=== PATIENT | female | born 2000 | race Caucasian/White ===

== ENCOUNTER 2020-11-29 17:06 | Emergency (ER) | payer OTHER ==
[~2020-11-29 17:06] MED LIST: BACTROBAN OINT22 GM EXT; IBU400 MG PO; IBUPROFEN600 MG PO; KEFLEX CAP 500500 MG PO; MACROBID 100 M100 MG PO
== END 2020-11-29 17:33 | disposition left against medical advice (07) ==
LOC: ER1 17:06
DX: Z53.21 Procedure and treatment not carried out due to patient leaving prior to being seen by health care provider (principal)

== ENCOUNTER 2020-12-01 20:03 | Emergency (ER) | payer OTHER | END 2020-12-01 23:00 | disposition left against medical advice (07) | LOC: ER1 20:03 | DX: N23 Unspecified renal colic (principal); Z53.21 Procedure and treatment not carried out due to patient leaving prior to being seen by health care provider ==

== ENCOUNTER 2020-12-23 14:47 | Emergency (ER) | payer OTHER ==
[2020-12-23] MEDS ORDERED: KEFLEX CAP 500500 MG PO (15:48)
[2020-12-23] MEDS ORDERED: BACTROBAN OINT22 GM EXT (15:48)
== END 2020-12-23 16:00 | disposition home or self-care (01) ==
LOC: ER1 14:47
DX: L03.116 Cellulitis of left lower limb (principal); L03.115 Cellulitis of right lower limb; F17.210 Nicotine dependence, cigarettes, uncomplicated
CPT/HCPCS: 99283

== ENCOUNTER 2021-02-14 16:12 | Emergency (ER) | payer OTHER | END 2021-02-14 17:17 | disposition left against medical advice (07) | LOC: ER1 16:12 | DX: R10.2 Pelvic and perineal pain (principal); F17.210 Nicotine dependence, cigarettes, uncomplicated | CPT/HCPCS: 99283 ==

== ENCOUNTER 2021-02-26 15:07 | Emergency (ER) | payer OTHER ==
[2021-02-26 15:51] LABS: HEMOGLOBIN 14.7 gm/dl (12.3-15.3); RED BLOOD COUNT 5.09 M/UL (4.00-5.10); WHITE BLOOD COUNT 8.8 K/UL (4.5-11.0)
[2021-02-26 16:08] LABS: BUN/CREATININE RATIO 11 (0-10)
[2021-02-26] MEDS ORDERED: LODINE CAP 300300 MG PO (17:47)
[2021-02-26] MEDS ORDERED: DOXYCYCLINE MO100 MG PO (17:47)
[2021-02-26] MEDS ORDERED: VALACYCLOVIR1000 MG PO (17:47)
[2021-02-26] MEDS ORDERED: ZOFRAN ODT 4 MG4 MG PO (17:47)
[2021-02-27] MEDS ORDERED: ZOFRAN ODT 4 MG4 MG PO (02:00)
[2021-03-01 08:10] LABS: HBSAG SCREEN Negative (Negative); HEP A AB, IGM Negative (Negative); HEP B CORE AB, IGM Negative (Negative); HEP C VIRUS AB 1.3 (0.0-0.9); HIV SCREEN 4TH GENERATION WRFX Non Reactive (Non Reactive)
[2021-03-01 16:11] LABS: TREPONEMA PALLIDUM ANTIBODIES Reactive (Non Reactive)
[2021-03-01 17:11] LABS: CHLAMYDIA TRACHOMATIS, NAA Negative (Negative); NEISSERIA GONORRHOEAE, NAA Positive (Negative)
== END 2021-02-26 18:01 | disposition home or self-care (01) ==
LOC: ER1 15:07
PROVIDERS: Physician Assistant
DX: N39.0 Urinary tract infection, site not specified (principal); Z20.2 Contact with and (suspected) exposure to infections with a predominantly sexual mode of transmission; F17.210 Nicotine dependence, cigarettes, uncomplicated
CPT/HCPCS: 80053; 80074; 80307; 81001; 84703; 85025; 86694; 86780; 87077; 87086; 87186; 87210; 87389; 96372; 99283; J0561; J0696

== ENCOUNTER 2021-02-26 20:30 | Emergency (ER) | payer OTHER ==
[~2021-02-26 20:30] MED LIST changes: +DOXYCYCLINE MO100 MG PO; +LODINE CAP 300300 MG PO; +VALACYCLOVIR1000 MG PO; +ZOFRAN ODT 4 MG4 MG PO
[2021-02-26 21:21] LABS: HEMOGLOBIN 16.2 gm/dl (12.3-15.3); RED BLOOD COUNT 5.57 M/UL (4.00-5.10)
[2021-02-26 21:37] LABS: BUN/CREATININE RATIO 7 (0-10)
[2021-02-27] MEDS ORDERED: ZOFRAN ODT 4 MG4 MG PO (02:00)
== END 2021-02-27 02:21 | disposition home or self-care (01) ==
LOC: ER1 20:30
PROVIDERS: Emergency Medicine
DX: A64 Unspecified sexually transmitted disease (principal); B17.9 Acute viral hepatitis, unspecified; F19.10 Other psychoactive substance abuse, uncomplicated; F17.210 Nicotine dependence, cigarettes, uncomplicated
CPT/HCPCS: 80053; 80074; 80307; 83605; 83690; 83735; 85025; 93005; 96374; 96375; 99285; G0480; J1200; J2405; Q9967

== ENCOUNTER 2021-05-02 02:53 | Emergency (ER) | payer OTHER | END 2021-05-02 06:55 | disposition home or self-care (01) | LOC: ER1 02:53 | PROVIDERS: Emergency Medicine | DX: S50.812A Abrasion of left forearm, initial encounter (principal); S50.811A Abrasion of right forearm, initial encounter; X83.8XXA Intentional self-harm by other specified means, initial encounter | CPT/HCPCS: 80307; 84703; 99284 ==

== ENCOUNTER 2021-10-31 20:02 | Outpatient (CLI) | payer OTHER ==
[~2021-10-31] VITALS: Ht 165.1 cm; Wt 61.2 kg
== END 2021-11-01 01:37 | disposition other institution (70) ==
LOC: GENOP 20:02
PROVIDERS: Obstetrics & Gynecology
DX: O47.03 False labor before 37 completed weeks of gestation, third trimester (principal); O36.8130 Decreased fetal movements, third trimester, not applicable or unspecified; O99.333 Smoking (tobacco) complicating pregnancy, third trimester; F17.200 Nicotine dependence, unspecified, uncomplicated; Z3A.28 28 weeks gestation of pregnancy
CPT/HCPCS: 51702; 80307; 81001; 96361; 96367; 96368; 96372; 96374; J0702; J2405; J3475; J7120

== ENCOUNTER 2022-01-04 18:55 | Outpatient (CLI) | payer OTHER | END 2022-01-04 22:04 | disposition home or self-care (01) | LOC: GENOP 18:55 | DX: O99.891 Other specified diseases and conditions complicating pregnancy (principal); M54.9 Dorsalgia, unspecified; O99.343 Other mental disorders complicating pregnancy, third trimester; O99.353 Diseases of the nervous system complicating pregnancy, third trimester; O26.613 Liver and biliary tract disorders in pregnancy, third trimester; R10.9 Unspecified abdominal pain; R10.2 Pelvic and perineal pain; F31.9 Bipolar disorder, unspecified; G40.909 Epilepsy, unspecified, not intractable, without status epilepticus; Z3A.37 37 weeks gestation of pregnancy | CPT/HCPCS: 59025; 81001; 96360; 96361 ==

== ENCOUNTER 2022-01-10 12:09 | Outpatient (CLI) | payer OTHER ==
[2022-01-11] MEDS ORDERED: PRENATAL TABLE1 EAC1 PO (16:33)
== END 2022-01-10 17:35 | disposition home or self-care (01) ==
LOC: GENOP 12:09
DX: O47.1 False labor at or after 37 completed weeks of gestation (principal); O36.8130 Decreased fetal movements, third trimester, not applicable or unspecified; O99.333 Smoking (tobacco) complicating pregnancy, third trimester; F17.210 Nicotine dependence, cigarettes, uncomplicated; Z3A.38 38 weeks gestation of pregnancy
CPT/HCPCS: 81001; 96360; 96366

== ENCOUNTER 2022-01-11 10:21 | Inpatient (IN) | payer OTHER ==
[~2022-01-11] VITALS: Ht 165.1 cm; Wt 65.8 kg
[2022-01-11 16:13] LABS: HEMOGLOBIN 12.5 gm/dl (12.3-15.3); RED BLOOD COUNT 4.2 M/UL (4.00-5.10); WHITE BLOOD COUNT 21.4 K/UL (4.5-11.0)
[2022-01-11] MEDS ORDERED: PRENATAL TABLE1 EAC1 PO (16:33)
[2022-01-13 06:26] LABS: HEMOGLOBIN 11.8 gm/dl (12.3-15.3)
== END 2022-01-14 15:35 | disposition home or self-care (01) | DRG 806 ==
LOC: GENOP 10:21 → OB 15:20
PROVIDERS: Obstetrics & Gynecology; ADMIT Obstetrics & Gynecology
PROC: 10E0XZZ Delivery of Products of Conception, External Approach (ICD-10-PCS; principal; 2022-01-12)
PROC: 10907ZC Drainage of Amniotic Fluid, Therapeutic from Products of Conception, Via Natural or Artificial Opening (ICD-10-PCS; 2022-01-12)
PROC: 10H07YZ Insertion of Other Device into Products of Conception, Via Natural or Artificial Opening (ICD-10-PCS; 2022-01-12)
PROC: 4A1H7CZ Monitoring of Products of Conception, Cardiac Rate, Via Natural or Artificial Opening (ICD-10-PCS; 2022-01-12)
PROC: 10H073Z Insertion of Monitoring Electrode into Products of Conception, Via Natural or Artificial Opening (ICD-10-PCS; 2022-01-12)
PROC: 3E0234Z Introduction of Serum, Toxoid and Vaccine into Muscle, Percutaneous Approach (ICD-10-PCS; 2022-01-12)
DX: O99.824 Streptococcus B carrier state complicating childbirth (principal); O98.12 Syphilis complicating childbirth; Z37.0 Single live birth; O98.42 Viral hepatitis complicating childbirth; O99.344 Other mental disorders complicating childbirth; A53.9 Syphilis, unspecified; O99.334 Smoking (tobacco) complicating childbirth; F17.210 Nicotine dependence, cigarettes, uncomplicated; O99.354 Diseases of the nervous system complicating childbirth; G40.909 Epilepsy, unspecified, not intractable, without status epilepticus; Z20.822 Contact with and (suspected) exposure to COVID-19; B19.20 Unspecified viral hepatitis C without hepatic coma; F31.9 Bipolar disorder, unspecified; Z3A.38 38 weeks gestation of pregnancy; Z90.89 Acquired absence of other organs; Z83.3 Family history of diabetes mellitus; Z81.8 Family history of other mental and behavioral disorders; Z83.6 Family history of other diseases of the respiratory system; Z84.89 Family history of other specified conditions; Z23 Encounter for immunization
CPT/HCPCS: 80307; 81001; 82800; 85014; 85018; 85025; 90715; G0378; J0595; J2210; J2405; J2590; J7120; U0002